=== PATIENT | male | born 1985 | race Caucasian/White ===

== ENCOUNTER 2020-06-17 12:05 | Emergency (ER) | payer SELFPAY ==
--- NOTE | ~2020-06-17 | XR_ITS ---
EXAMINATION: XR chest 1V portable DATE: 06/17/2020 12:47 INDICATION: Chest injury. Shortness of breath and chest pain. TECHNIQUE: A single frontal view of the chest was obtained. COMPARISON: CT abdomen 09/13/2006 FINDINGS: There is mild atelectasis in right lower lung zone. No pleural effusion or pneumothorax. Th e heart size is normal. IMPRESSION: 1. Mild atelectasis in right lower lung zone. Reviewed, dictated and finalized at location A.
[2020-06-17 12:19] VITALS: BP 157/86; PULSE 62; RESP 18; TEMP 37.2; O2SAT 99
--- NOTE | 2020-06-17 12:21 | ECG_ITS ---
Measurements Intervals [place] Rate: 55 P: 6 [place]: 147 QRS: -12 QRSD: 112 T: 11 QT: 414 QTc: 397 Interpretive Statements SINUS BRADYCARDIA INTRAVENTRICULAR CONDUCTION DELAY BORDERLINE ECG Electronically Signed On 06-18-2020 7:14:44 CDT by Layo Mallory D.O.
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
[2020-06-17 12:47] VITALS: BP 152/79; PULSE 70; RESP 16; TEMP 36.9; O2SAT 99
--- NOTE | 2020-06-17 12:48 | PC.NURSE ---
ERP on phone with [place] authorization coordinator. no change in pt condition. pt speaking on his phone.
--- NOTE | 2020-06-17 13:05 | PC.NURSE ---
report called to Sergio KELLEY RN, brady
[2020-06-17 13:06] VITALS: BP 142/79; PULSE 70; RESP 16; TEMP 36.9; O2SAT 99
== END 2020-06-17 13:14 | disposition short-term general hospital (02) ==
PROVIDERS: Emergency Provider Family Medicine
DX: S29.8XXA Other specified injuries of thorax, initial encounter (principal); S39.91XA Unspecified injury of abdomen, initial encounter; W22.8XXA Striking against or struck by other objects, initial encounter
CPT/HCPCS: 71045; 93005; 99283; 99285; L0150

== ENCOUNTER 2022-07-31 08:04 | Emergency (ER) | payer SELFPAY ==
--- NOTE | ~2022-07-31 | CT_ITS ---
EXAMINATION: CT brain wo con DATE: 07/31/2022 09:17 INDICATION: Head injury. Left-sided headache. TECHNIQUE: Computed tomography (CT) of the head was performed without intravenous contrast. The dose- length product was 681.00 mGy-cm. COMPARISON: None FINDINGS: Brain parenchymal volume is normal. Normal purdy-white differentiation. No ventriculomegaly or midline shift. Basilar cisterns are patent. No acute hemorrhage, infarction, mass or mass effect. Paranasal sinuses and mastoids are pneumatized. No depressed skull fractures. IMPRESSION: 1. No acute intracranial abnormality. Reviewed, dictated and finalized at location B.
--- NOTE | ~2022-07-31 | CT_ITS ---
EXAMINATION: CT facial & cervical spine wo DATE: 07/31/2022 09:17 INDICATION: Head injury TECHNIQUE: Computed tomography (CT) of the maxillofacial region and cervical spine was performed with out intravenous contrast. The dose-length product (DLP) was 387.94 mGy-cm. Automated exposure control and iterative reconstruction technique were employed. COMPARISON: None FINDINGS: MAXILLOFACIAL CT: Motion artifact slightly limits the examination. No facial bone fracture is identified. The globes an d orbits are normal. The visualized paranasal sinuses are clear. CERVICAL SPINE CT: Motion artifact significantly degrades evaluation of the cervical spine. Alignment is grossly normal. No definite fracture is seen. The prevertebral soft tissues appear normal. The odontoid appears to b e intact. IMPRESSION: 1. No definite facial bone fracture identified, examination slightly limited by motion artifact. 2. Essentially nondiagnostic cervical spine CT due to motion artifact. No definite fracture is identi fied however if there is high clinical suspicion for cervical spine fracture, repeat examination is r ecommended. Reviewed, dictated and finalized at location A. IMPRESSION: 1. No definite facial bone fracture identified, examination slightly limited by motion artifact. 2. Essentially nondiagnostic cervical spine CT due to motion artifact. No defin ite fracture is identified however if there is high clinical suspicion for cerv ical spine fracture, repeat examination is recommended.
[2022-07-31 08:04] VITALS: BP 155/90; PULSE 112; RESP 18; TEMP 36.6; O2SAT 96
[2022-07-31 08:31] LABS: Basophils Absolute Auto 0.06 K/mm3 (0.00-0.10); Basophils Percent Auto 0.4 % (0.0-1.0); Eosinophils Absolute Auto 0.09 K/mm3 (0.02-0.50); Eosinophils Percent Auto 0.6 % (1.0-6.0); Hematocrit 40.4 % (40.0-54.0); Immature Granulocyte Percent A 0.6 % (0.0-0.0); Lymphocytes Absolute Auto 1.93 K/mm3 (1.10-4.50); Lymphocytes Percent Auto 12.3 % (18.0-42.0); Mean Corpuscular HGB Conc 34.7 g/dL (32.0-36.0); Mean Corpuscular Hemoglobin 32.5 pg (27.0-31.0); Mean Corpuscular Volume 93.7 fL (78.0-102.0); Mean Platelet Volume 10.5 fl (8.7-11.0); Monocytes Absolute Auto 1.33 K/mm3 (0.10-0.90); Monocytes Percent Auto 8.5 % (2.0-11.0); Neutrophils Absolute Auto 12.1 K/mm3 (1.7-7.2); Neutrophils Percent Auto 77.6 % (50.0-70.0); Platelet Count Result 283 K/mm3 (150-420); Red Blood Count 4.31 M/mm3 (4.70-6.10); Red Cell Distribution Width 12.8 % (11.6-14.4); White Blood Count 15.6 K/mm3 (4.8-10.8)
[2022-07-31 08:46] LABS: Alanine Aminotransferase 48 U/L (16-63); Albumin Level 3.9 g/dL (3.4-5.0); Alkaline Phosphatase 83 U/L (46-116); Anion Gap 8 mmol/L (8-16); Aspartate Amino Transferase 34 U/L (15-37); Bilirubin,Total 0.7 mg/dL (0.00-1.00); Blood Urea Nitrogen 8 mg/dL (7-18); Calcium 9.2 mg/dL (8.5-10.1); Carbon Dioxide 30 mmol/L (21-32); Chloride 102 mmol/L (98-108); Creatine Kinase 525 U/L (39-308); Estimated CRCL calculation 121 ml/min; Estimated Glomerular Filt Rate > 60; Glucose 91 mg/dL (70-99); Osmolality Calculated 288 mOsm/kg (285-295); Potassium 3.7 mmol/L (3.5-5.1); Sodium 140 mmol/L (136-145); Total Protein 7.2 g/dL (6.4-8.2)
[2022-07-31 08:47] LABS: Ethanol < 3 mg/dL (0-6)
[2022-07-31 10:03] VITALS: BP 121/63; PULSE 81; RESP 16; O2SAT 100
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
== END 2022-07-31 10:18 | disposition home or self-care (01) ==
PROVIDERS: Emergency Provider Emergency Medicine
DX: S01.81XA Laceration without foreign body of other part of head, initial encounter (principal); S01.312A Laceration without foreign body of left ear, initial encounter; Y04.0XXA Assault by unarmed brawl or fight, initial encounter
CPT/HCPCS: 12013; 36415; 70450; 70486; 72125; 80053; 80307; 82550; 85025; 99284